=== PATIENT | male | born 1940 | race Caucasian/White ===

== ENCOUNTER 2017-02-25 07:01 | Observation (INO) | payer MEDICARE ==
[2017-02-22 12:11] LABS: HEMATOCRIT 44.5 % (39.2-51.8); HEMOGLOBIN 15.1 g/dL (13.7-18.0); WHITE BLOOD COUNT 6.8 x10^3/uL (3.4-10)
[2017-02-22 12:18] LABS: BLOOD UREA NITROGEN 20 mg/dL (7-18)
[~2017-02-25] VITALS: Ht 193 cm; Wt 105.6 kg
[~2017-02-25 07:01] MED LIST: ALLO300T PO; ALLO300T80 PO; AMIO200T PO; APIX5TAB PO; FLEC50TA25 PO; FURO-92 PO; LISI-170 PO; LISI1TAB5 PO; METO50TA3 PO; OMEP-110 PO; POTA10TA11 PO
[2017-02-25] MEDS: SODIUM CHLORIDE 0.9% 1,000 ML IV SCH ×3 (07:15→19:20)
[2017-02-25] MEDS ORDERED: CLIN300C8 PO (07:32)
[2017-02-25] MEDS ORDERED: MIDAZOLAM 1 MG/ML, 5ML ONE (08:49)
[2017-02-25] MEDS ORDERED: FENTANYL PF 100 MCG/2ML ONE (08:49)
[2017-02-25] MEDS ORDERED: VANCOMYCIN 500 MG ONE (08:50)
[2017-02-25] MEDS ORDERED: VANCOMYCIN PMX 1GM/200ML 200 ML ONE (08:50)
[2017-02-25] MEDS ORDERED: LIDOCAINE 2%, 20ML ONE (08:51)
[2017-02-25] MEDS ORDERED: ZOLPIDEM 5MG TABLET PO PRN (10:00)
[2017-02-25] MEDS ORDERED: VANCOMYCIN PMX 1GM/200ML 200 ML IVPB ONE (10:30)
[2017-02-25] MEDS: HYDROcodone/APAP 5/325 TABLET PO PRN (13:07)
[2017-02-25 14:20] VITALS: BP 138/81
[2017-02-25] MEDS ORDERED: CLINDAMYCIN 300 MG CAPSULE PO SCH (16:00)
[2017-02-25 18:51] VITALS: BP 119/76
[2017-02-25] MEDS: SODIUM CHLORIDE FLUSH 10ML SYR IVF SCH (21:05)
[2017-02-26 03:22] VITALS: BP 115/70
[2017-02-26] MEDS: HYDROcodone/APAP 5/325 TABLET PO PRN (03:27)
[2017-02-26] MEDS ORDERED: VANCOMYCIN PMX 1GM/200ML 200 ML IV ONE (07:00)
[2017-02-26] MEDS: SODIUM CHLORIDE 0.9% 1,000 ML IV SCH (07:15)
[2017-02-26] MEDS ORDERED: ACET325T14 PO (07:56)
[2017-02-26] MEDS: SODIUM CHLORIDE FLUSH 10ML SYR IVF SCH (07:56)
[2017-02-26] MEDS ORDERED: HYDROCHLOROTHIAZIDE 12.5 MG CAPSULE PO SCH (09:00)
[2017-02-26] MEDS ORDERED: LISINOPRIL 20 MG TABLET PO SCH (09:00)
[2017-02-26] MEDS ORDERED: ALLOPURINOL 300 MG TABLET PO SCH (09:00)
[2017-02-26] MEDS ORDERED: OMEPRAZOLE 20 MG CAPSULE.DR PO SCH (09:00)
[2017-02-26] MEDS ORDERED: METOPROLOL TARTRATE 25 MG TABLET PO SCH (09:00)
[2017-02-26] MEDS ORDERED: METOPROLOL TARTRATE 50 MG TABLET PO SCH (09:00)
== END 2017-02-26 09:29 | disposition home or self-care (01) ==
LOC: CACL 07:01 → 5SO 09:34 → CACL 10:07
PROVIDERS: ADMIT Internal Medicine Cardiovascular Disease; ATTEND Internal Medicine Cardiovascular Disease
DX: R00.1 Bradycardia, unspecified (principal); I49.5 Sick sinus syndrome; I48.0 Paroxysmal atrial fibrillation; I42.8 Other cardiomyopathies
CPT/HCPCS: 33208; 36415; 71010; 71020; 80048; 85025; 85610; 96365; 99156; 99157; C1779; C1785; C1892; G0378; J2250; J3010; J3370; J3490

== ENCOUNTER 2017-04-04 13:04 | Inpatient (IN) | payer MEDICARE ==
[~2017-04-04] VITALS: Ht 193 cm; Wt 112.0 kg
[~2017-04-04 13:04] MED LIST changes: +ACET325T14 PO; +CLIN300C8 PO
[2017-04-04] MEDS ORDERED: DILTIAZEM 5 MG/ML, 5ML IVPush PRN (14:30)
[2017-04-04] MEDS ORDERED: ZOLPIDEM 5MG TABLET PO PRN (14:30)
[2017-04-04] MEDS ORDERED: ACETAMINOPHEN 325 MG TABLET PO PRN (14:30)
[2017-04-04] MEDS ORDERED: POLYETHYLENE GLYCOL 17 GM PACKET PO PRN (14:30)
[2017-04-04] MEDS ORDERED: ONDANSETRON ODT 4 MG PO PRN (14:30)
[2017-04-04] MEDS: PLEASE ENTER HEIGHT AND WEIGHT MC SCH ×2 (15:00→19:23)
[2017-04-04 15:17] LABS: HEMATOCRIT 42.9 % (39.2-51.8); HEMOGLOBIN 14.4 g/dL (13.7-18.0); WHITE BLOOD COUNT 6.5 x10^3/uL (3.4-10)
[2017-04-04 15:28] VITALS: BP 118/76
[2017-04-04 15:32] LABS: ASPARTATE AMINO TRANSFERASE 22 U/L (15-37); BLOOD UREA NITROGEN 32 mg/dL (7-18)
[2017-04-04 15:39] LABS: IS PT STATUS REG ER OR PRE ER? NO
[2017-04-04] MEDS: METOPROLOL TARTRATE 100 MG TABLET PO SCH (16:47)
[2017-04-04] MEDS: APIXABAN 5 MG TABLET PO SCH (17:02)
[2017-04-04] MEDS: SODIUM CHLORIDE FLUSH 10ML SYR IVF SCH (19:23)
[2017-04-04 19:46] VITALS: BP 97/67
[2017-04-05 02:00] VITALS: BP 97/68
[2017-04-05 05:29] LABS: BLOOD UREA NITROGEN 28 mg/dL (7-18)
[2017-04-05 05:32] LABS: ASPARTATE AMINO TRANSFERASE 25 U/L (15-37)
[2017-04-05] MEDS: METOPROLOL TARTRATE 100 MG TABLET PO SCH (06:08)
[2017-04-05] MEDS: PLEASE ENTER HEIGHT AND WEIGHT MC SCH (07:00)
[2017-04-05] MEDS ORDERED: RIVAROXABAN 20 MG TABLET PO SCH (07:39)
[2017-04-05] MEDS: APIXABAN 5 MG TABLET PO SCH (08:25)
[2017-04-05] MEDS: SODIUM CHLORIDE FLUSH 10ML SYR IVF SCH (08:25)
[2017-04-05 09:41] VITALS: BP 115/80
[2017-04-05] MEDS ORDERED: PROPOFOL 10 MG/ML, 20ML ONE (13:20)
[2017-04-05 15:23] VITALS: BP 131/91
[2017-04-05] MEDS ORDERED: RIVA20TA PO (15:43)
== END 2017-04-05 18:18 | disposition home or self-care (01) | DRG 310 ==
LOC: 5SO 13:04
PROVIDERS: ADMIT Internal Medicine; ATTEND Internal Medicine
PROC: 5A2204Z Restoration of Cardiac Rhythm, Single (ICD-10-PCS; principal; 2017-04-04)
DX: I48.92 Unspecified atrial flutter (principal); I27.20 Pulmonary hypertension, unspecified; I42.9 Cardiomyopathy, unspecified; I48.91 Unspecified atrial fibrillation; K21.9 Gastro-esophageal reflux disease without esophagitis; M10.9 Gout, unspecified; I10 Essential (primary) hypertension; Z79.899 Other long term (current) drug therapy; Z86.711 Personal history of pulmonary embolism; Z86.718 Personal history of other venous thrombosis and embolism; Z87.442 Personal history of urinary calculi; Z87.891 Personal history of nicotine dependence; Z95.0 Presence of cardiac pacemaker
CPT/HCPCS: 36415; 71020; 80053; 83036; 84439; 84443; 84484; 85025; 92960; 93005; 93312; 93321; 93325; J2704

== ENCOUNTER 2017-07-17 06:55 | Day surgery (SDC) | payer MEDICARE ==
[~2017-07-17] VITALS: Ht 193 cm; Wt 115.0 kg
[~2017-07-17 06:55] MED LIST changes: -METO50TA3 PO; +METO50TA6 PO; +RIVA20TA PO
[2017-07-17 07:22] VITALS: BP 138/88
[2017-07-17] MEDS ORDERED: PROPOFOL 10 MG/ML, 20ML ONE (08:16)
[2017-07-17] MEDS ORDERED: SODIUM CHLORIDE FLUSH 10ML SYR IVF SCH (09:00)
== END 2017-07-17 09:58 ==
LOC: CACL 06:55
PROVIDERS: ATTEND Internal Medicine Cardiovascular Disease
DX: I48.91 Unspecified atrial fibrillation (principal); I27.0 Primary pulmonary hypertension
CPT/HCPCS: 92960; J2704